=== PATIENT | female | born 1980 | race Hispanic/Latino ===

== ENCOUNTER 2024-01-01 14:54 | Emergency (ER) | payer OTHER ==
[~2024-01-01] VITALS: Ht 162.6 cm; Wt 81.2 kg
[~2024-01-01 14:54] MED LIST: FLOMAX0.4 MG PO; ULTRAM 50MG50 MG PO
[2024-01-01 15:24] VITALS: PULSE 59; RESP 18; TEMP 97.5
[2024-01-01] MEDS: ONDANSETRON HCL INJ 2MG/ML 2ML 2 MG/ML VIAL IV ONE (16:01)
[2024-01-01] MEDS: FAMOTIDINE 20 MG/2 ML VIAL IV ONE (16:02)
[2024-01-01] MEDS: KETOROLAC TROMETHAMINE 30 MG/ML VIAL IV STA (16:02)
[2024-01-01] MEDS: SODIUM CHLORIDE 0.9% 1000ML 1,000 ML IV STA (16:02)
[2024-01-01] MEDS ORDERED: ONDANSETRON ODT4 MG PO (17:24)
[2024-01-01] MEDS ORDERED: TYLENOL325 MG PO (17:24)
[2024-01-01] MEDS ORDERED: MAALOX MAXIMUM355 ML PO (17:24)
[2024-01-01] MEDS ORDERED: KETOROLAC TROME10 MG PO (17:24)
[2024-01-01] MEDS: HYDROCODONE/APAP 5MG-325MG TAB PO ONE (17:49)
[2024-01-01 17:54] VITALS: BP 134/87; PULSE 92; RESP 16; TEMP 97.8; O2SAT 99
== END 2024-01-01 17:50 | disposition home or self-care (01) ==
LOC: FSED 15:11
DX: R11.2 Nausea with vomiting, unspecified (principal); K52.9 Noninfective gastroenteritis and colitis, unspecified; R10.30 Lower abdominal pain, unspecified; M54.50 Low back pain, unspecified
CPT/HCPCS: 74176; 99283; J1885; J2405; J7030